=== PATIENT | male | born 1980 | race Caucasian/White ===

== ENCOUNTER 2025-05-04 13:53 | Outpatient (POV) | payer BC, SELFPAY ==
--- OUTSIDE RECORDS SUMMARY | 2025-04-12 10:30 | XMS_ITS | Encounter Summary ---
Author [place] [address] Care Team Providers Care Underground Bolting Machine Operator Name Role Phone Christian Somers DO Primary Care Provider [phone] Reason for Visit * Reason Comments Referral Pain management Skin Condition Encounter Details Date Type Department Care Team (Late st Contact Info) Description 04/12/2025 10:30 AM EDT Office Visit [facility] [address] [place] [address] Sawyer Pacheco MD [address] [place] [address] Chronic midline low back pain without sciatica (Primary Dx); Cyst of skin Social History Tobacco Use Types Packs/Day Years Used Date Smoking Tobacco: Every Day Cigarettes 3 6 Started: 10/26/1999; Last attempted to quit: 10/26/2005 Smokeless Tobacco: Never Tobacco Cessation:Ready to Q uit: Not Asked; Counseling Given: Not Answered Alcohol Use Standard Drinks/Week Comments Not Currently 0 (1 standard drink = 0.6 oz pur e alcohol) PHQ-2 Answer Date Recorded PHQ-2 Total Score 0 06/29/2024 Sex and Gender Information Value Date Recorded Sex Assigned at Not on file Legal Sex Male 4:05 AM EDT Gender Identity Not on file Sexual Orientation Not on file documented as of this encounter Last Filed Vital Signs Vital Sign Reading Time Taken Comments Blood Pressure 106/68 04/12/2025 10:56 AM EDT Pulse - - Temperature 36.8 C (98.2 F) 04/12/2025 10:56 AM EDT Respiratory Rate - - Oxygen Saturation - - Inhaled Oxygen Concentration - - Weight 81.6 kg (180 lb) 04/12/2025 10:56 AM EDT Height 193 cm (6' 4 ) 04/12/2025 10:56 AM EDT Body Mass Index 21.91 04/12/2025 10:56 AM EDT documented in this encounter Functional Status * Is the person deaf or does he/she have serious difficulty hearing? Answer Date of Assessment Author No 12/14/2020 10:25 AM Ingrid Benavides RMA * Is the person blind or does he/she have serious difficulty seeing even when wearing glasses? Answer Date of Assessment Author No 12/14/2020 10:25 AM Ingrid Benavides RMA * Does this person have serious difficulty walking or climbing stairs? Answer Date of Assessment Author No 12/14/2020 10:25 AM Ingrid Benavides RMA * Does this person have difficulty dressing or bathing? Answer Date of Assessment Author No 12/14/2020 10:25 AM Ingrid Benavides RMA * Because of a physical, mental or emotional condition, does this person have difficulty doing errands alone such as visiting a doctor's office or shopping? Answer Date of Assessment Author No 12/14/2020 10:25 AM Ingrid Benavides RMA documented as of this encounter Mental Status * Because of a physical, mental or emotional condition, does this person have serious difficulty concentrating, remembering or making decisions? Answer Entry Date Author No 12/14/2020 10:25 AM Ingrid Benavides RMA documented in this encounter Ordered Prescriptions Prescription Sig Dispense Quantity Refills Last Filled Start Date End Date ibuprofen (ADVIL;MOTRIN) 800 mg Oral TabletIndications :Chronic midline low back pain without sciatica Take 1 Tablet by mouth every 8 hours as needed for Pain. 90 Tablet 2 04/12/2025 methylPREDNISolon e (MEDROL DOSPACK) 4 mg Oral Tablets, Dose PackIndications:C hronic midline low back pain without sciatica See package instructions 21 Tablet 04/12/2025 documented in this encounter Progress Notes * Sawyer Pacheco MD - 04/12/2025 10:30 AM EDT Vitals: 04/12/25 1056 BP: 106/68 Temp: 98.2 ??F (36.8 ??C) Weight: 180 lb (81.6 kg) Height: 6' 4 (1.93 m) Body mass index is 21.91 kg/m??. SUBJECTIVE: Chief Complaint Patient presents with Referral Pain management Skin Condition HPI: Pt here to get referral ordered for pain management. He is also requesting medication to help with the pain. He has been getting some relief taking 800 mg of OTC ibuprofen and wants to discuss prescription and maybe some steroids. Pt has also had a dark spot on his back for a couple months or so. Review of Systems Constitutional: Negative for fever. Eyes: Negative for visual disturbance. Respiratory: Negative for cough. Cardiovascular: Negative for chest pain. Gastrointestinal: Negative for abdominal pain, constipation and diarrhea. Genitourinary: Negative for difficulty urinating. Musculoskeletal: Negative for joint swelling. Skin: Negative for rash. Neurological: Negative for dizziness, light-headedness and headaches. OBJECTIVE: Physical Exam Vitals reviewed. Constitutional: General: He is not in acute distress. Appearance: Normal appearance. He is well-developed. He is not ill-appearing. HENT: Head: Normocephalic and atraumatic. Right Ear: Tympanic membrane is not erythematous or bulging. Left Ear: Tympanic membrane is not erythematous or bulging. Eyes: General: Right eye: No discharge. Left eye: No discharge. Conjunctiva/sclera: Conjunctivae normal. Cardiovascular: Rate and Rhythm: Normal rate and regular rhythm. Heart sounds: Normal heart sounds. Pulmonary: Effort: Pulmonary effort is normal. Breath sounds: Normal breath sounds. Abdominal: Palpations: Abdomen is soft. Musculoskeletal: General: Normal range of motion. Skin: General: Skin is warm. Findings: No rash. Neurological: Mental Status: He is alert. Psychiatric: Mood and Affect: Mood normal. Thought Content: Thought content normal. Assessment & Plan Chronic midline low back pain without sciatica Orders: methylPREDNISolone (MEDROL DOSPACK) 4 mg Oral Tablets, Dose Pack; See package instructions methylPREDNISolone acetate (DEPO-Medrol) injection 80 mg ibuprofen (ADVIL;MOTRIN) 800 mg Oral Tablet; Take 1 Tablet by mouth every 8 hours as needed for Pain. Cyst of skin Benign, can follow up with derm for excision if desired. documented in this encounter Plan of Treatment Not on file documented as of this encounter Goals Goal Patient Goal Type Associated Problems Recent Progress Patient-Stated? Author Eat better, exercise, reach an ideal body weight General No Ingrid Srinivasan RMA Stay Tobacco Free Lifestyle No Ingrid Srinivasan RMA documented as of this encounter Visit Diagnoses Diagnosis Chronic midline low back pain without sciatica- Primary Cyst of skin Sebaceous cyst documented in this encounter Administered Medications Inactive Administered Medications - up to 1 most recent administrations Medication Order MAR Action Action Date Dose Rate Site methylPREDNISolone acetate (DEPO-Medrol) injection 80 mg 80 mg, Intramuscular, ONCE, 1 dose, On Thu04/12/25 at 1130, Dx: 1. Chronic midline low back pain without sciaticaIndications:Chr onic midline low back pain without sciatica Given 04/12/2025 11:21 AM EDT 80 mg Left Upper Outer Quadrant documented in this encounter Discontinued Medications Medication Sig Discontinue Reason Start Date End Da te diclofenac (VOLTAREN) 75 mg Oral Tablet, Delayed Release (E.C.)Indications:[place] pain of right knee Take 1 Tablet by mouth 2 times daily (with meals). DELETE-Therapy completed 07/12/2024 04/12/2025 methylPREDNISolone (MEDROL DOSPACK) 4 mg Oral Tablets, Dose PackIndications:[place] pain of right knee See package instructions DELETE-Therapy completed 07/12/2024 04/12/2025 methylPREDNISolone (MEDROL DOSPACK) 4 mg Oral Tablets, Dose PackIndications:[place] pain of right knee See package instructions DELETE-Therapy completed 07/12/2024 04/12/2025 documented as of this encounter Care Teams Underground Bolting Machine Operator Relationship Specialty Start Date End Date Christian Somers DO [address] [place] [address] PCP - General 03/22/10 documented as of this encounter
--- OUTSIDE RECORDS SUMMARY | 2025-05-04 14:13 | XMS_ITS | Encounter Summary ---
Author Organization [facility] [address] Care Team Providers Care Machine Setter Supervisor Name Role Phone LizbetChristian Primary Care Provider Reason for Visit * Reason Onset Date Comments Follow Up 04/17/2025 f/u on pain ad gement referral Encounter Details Date Type Department Care Team (Late st Contact Info) Description 04/17/2025 Telephone [facility] [address] [place] [address] Christian Somers DO [address] [place], [place] [id number] Follow Up (f/u on pain management referral ) Social History Tobacco Use Types Packs/Day Years Used Date Smoking Tobacco: Every Day Cigarettes 3 6 Started: 10/26/1999; Last attempted to quit: 10/26/2005 Smokeless Tobacco: Never Alcohol Use Standard Drinks/Week Comments Not Currently 0 (1 standard drink = 0.6 oz pur e alcohol) PHQ-2 Answer Date Recorded PHQ-2 Total Score 0 06/29/2024 Sex and Gender Information Value Date Recorded Sex Assigned at Not on file Legal Sex Male 4:05 AM EDT Gender Identity Not on file Sexual Orientation Not on file documented as of this encounter Functional Status * Is the [...] Ingrid Benavides RMA documented in this encounter Miscellaneous Notes * Telephone Encounter - Patricia Neville - 04/17/2025 4:21 PM EDT Re-faxed this form. If pt needs it updated/re-faxed again, it is in my money drawer * Telephone Encounter - Vesna Elizondo - 04/17/2025 3:45 PM EDT Select the most appropriate reason for this telephone message: Follow Up Follow Up Who is Calling:Patient What is the caller following up on (make sure to reference any prior documentation/encounter):pt wanted to follow up with the referral for pain management. pt stated he has not heard anything and would like someone to f/u with him Further follow-up needed?:Yes Return Method of Communication:Phone call Additional Information:N/A documented in this encounter Plan of Treatment Not on file documented as of this encounter Goals Goal Patient Goal Type Associated Problems Recent Progress Patient-Stated? Author Eat better, exercise, reach an ideal body weight General No Ingrid Srinivasan RMA Stay Tobacco Free Lifestyle No Ingrid Srinivasan RMA documented as of this encounter Visit Diagnoses Not on filedocumented in this encounter Care Teams Machine Setter Supervisor Relationship Specialty Start Date End Date Christian Somers DO [address] [place] [address] PCP - General 03/22/10 documented as of this encounter
--- OUTSIDE RECORDS SUMMARY | 2025-05-04 14:13 | XMS_ITS | Encounter Summary ---
Author Organization [place] [address] Care Team Providers Care Mosaic Floor Layer Name Role Phone Christian Somers DO Primary Care Provider [phone] Reason for Referral * Consultation (Routine) - Pending Review Specialty Diagnoses / Procedures Referred By Samir ramsey Referred To Contact Diagnoses Chronic midline low back pain without sciatica Procedures OR OFFICE/OUTPATIENT NEW MODERATE MDM 45 MINUTES Christian Somers DO [address] [place] [address] Phone: tel: fax: [address] [address] Phone: tel: fax: Referral ID Status Reason Start Date Expiration Date Visits Requested Visits Authorized [id number] Pending Review Specialty Services Required 04/10/2025 04/10/2026 99 99 Reason for Visit * Reason Onset Date Comments Referral 04/10/2025 pain management referral Encounter Details Date Type Department Care Team (Late st Contact Info) Description 04/10/2025 Telephone [facility] [address] [place] [address] Christian Somers DO [address] [place], [place] [id number] Referral (pain management referral) Social History Tobacco Use Types Packs/Day Years [...] encounter Miscellaneous Notes * Telephone Encounter - Karie Brown - 04/11/2025 3:11 PM EDT [place] patient needs appt for documentation due to pain management requesting records. We have nothing recent on file * Telephone Encounter - Keren Harden - 04/11/2025 1:27 PM EDT Select the most appropriate reason for this telephone message: Other Who is calling (name & relationship to patient if not the patient): Patient What is needed OR why are they calling: Per pt stating would need this faxed over to [phone] When is this needed by: today Where does this information need to go: n/a Return Method of Communication: Phone Call Additional information:N/A * Telephone Encounter - Brie Mchugh RMA - 04/10/2025 1:18 PM EDT Referral ordered. * Telephone Encounter - Ni Lane - 04/10/2025 12:16 PM EDT Select the most appropriate reason for this telephone message: Referral Request Who is requesting the referral: Patient What type of referral: Pain management What is the reason / diagnosis for this referral:Neck and back pain,migraines Have you been seen by your PCP for this issue: Yes Does patient have a preference on a group/provider: Yes (if yes, complete preferred provider info below) Preferred Provider/Group Name: [facility] pain management Preferred Provider/Group Preferred Provider/Group Fax Number: Return Method of Communication: Phone Call Additional Information: N/A documented in this encounter Plan of Treatment Scheduled Referrals Name Type Priority Associated Diagnoses Orde r Schedule AMB REFERRAL TO PAIN CLINIC Outpatient Referral Routine Chronic midline low back pain without sciatica Ordered: 04/10/2025 documented as of this encounter Goals Goal Patient Goal Type Associated Problems Recent Progress Patient-Stated? Author Eat better, exercise, reach an ideal body weight General No Ingrid Srinivasan RMA Stay Tobacco Free Lifestyle No Ingrid Srinivasan RMA documented as of this encounter Visit Diagnoses Diagnosis Chronic midline low back pain without sciatica- Primary documented in this encounter Care Teams Mosaic Floor Layer Relationship Specialty Start Date End Date Christian Somers DO [address] [place] [address] PCP - General 03/22/10 documented as of this encounter
--- OUTSIDE RECORDS SUMMARY | 2025-05-04 14:13 | XMS_ITS | Patient Health Record ---
Author Organization [facility] Address [address] [place] [address] [address] [place] [address] Care Team Providers Care Health Therapist Name Role Phone Lizbet ADAMES-PCPChristian Unavailabl e Allergies No Known Allergies Reason For Referral No Information Medications Medication SIG (Take, Route, Frequency, Duration) Notes Start Date End Date Status cyclobenzaprine 10 mg 1 tab(s) orally 3 times a day PRN 01/07/2021 Active ibuprofen 800 mg ; Duration: 30 Active hydrOXYzine hydrochloride 50 mg 1 tab(s) orally 4 times a day 06/13/2021 Active ARIPiprazole 2 mg ; Duration: 30 Active Acetaminophen-Hydrocodon e Bitartrate 325 mg-5 mg 1 tab(s) orally every 8 hours; Duration: 30 days SEPTEMBER 2021 RX, DO NOT FILL ANY SOONER THAN EVERY 30 DAYS, (OK TO FILL EARLY IF CLOSED) Active FLUoxetine 20 mg 1 cap(s) orally once a day; Duration: 30 day(s) 06/13/2021 Active Acetaminophen-Hydrocodon e Bitartrate 325 mg-5 mg 1 tab(s) orally every 8 hours; Duration: 30 days OCTOBER 2021 RX, DO NOT FILL ANY SOONER THAN EVERY 30 DAYS, (OK TO FILL EARLY IF CLOSED) Active gabapentin 300 mg 1 cap(s) orally QHS; Duration: 30 day(s) DO NOT FILL ANY SOONER THAN EVERY 30 DAYS, (OK TO FILL EARLY IF CLOSED) Active Social History Tobacco Use: Social History Observation Description Date Details (start date - stop date) Former Smoker NA - NA Alcohol Screen Question Answer Notes Did you have a drink containing alcohol in the p ast year? No Points 0 Interpretation Negative Smoking-PQRS Question Answer Notes Are you a: former smoker Problems Problem Type SNOMED Code ICD Code Onset Dates Problem Status W/U Status Risk Notes Problem Cervical spondylosis without myelopathy (459837964) Spondylosis without myelopathy or radiculopathy, cervical region (M47.812) Active confirmed Problem Lumbosacral spondylosis without myelopathy (86770201) Spondylosis without myelopathy or radiculopathy, lumbar region (M47.816) Active confirmed Problem Degeneration of cervical intervertebral disc (23560435) Other cervical disc degeneration, unspecified cervical region (M50.30) Active confirmed Problem Degeneration of lumbar intervertebral disc (34413816) Other intervertebral disc degeneration, lumbar region (M51.36) Active confirmed Problem Lumbar radiculopathy (844201111) Radiculopathy, lumbar region (M54.16) Active confirmed Problem Cervicalgia (62643164) Cervicalgia (M54.2) Active confirmed Problem Low back pain (384213763) Low back pain (M54.5) Active confirmed Problem Long-term current use of drug therapy (423272885) Other half-way (current) drug therapy (Z79.899) Active confirmed Problem Cervical spondylosis (068363464) cervical spondylosis (M47.812) Active confirmed Plan Of Treatment Pending Test Test Name Order Date Urine Test LCMS Definitive 01/16/2021 Urine Test LCMS Definitive 02/13/2021 Insurance Providers Payer Name Payer Address Payer Phone Subscriber Number Group Number Insured Name Patient Relationship to Insured Coverage Start Date Coverage End Date [employer] [address] [place] [address] [id number] [place] [address] Spouse - patient is the spouse of the insured 7 Medical (General) History Medical History History ICD Code headaches/ migraine sleep apnea Spine disorder Arthritis Surgical History Surgery Date(Month/Year)
--- OUTSIDE RECORDS SUMMARY | 2025-05-04 14:13 | XMS_ITS | Clinical Summary ---
Author Organization [facility] Address [address] [place] [address] Phone Care Team Providers Care Rehabilitation Physician Name Role Phone Christian Somers DO Primary Care Provider [phone] Allergies Active Allergy Reactions Criticality Noted Date Comments Baclofen Other (See Comments) 02/01/2017 Dizziness, passed out Medications * This document contains information received from the source organization and may not represent a complete record from that organization. methylPREDNISol one (MEDROL DOSPACK) 4 mg Oral Tablets, Dose PackIndications :Chronic midline low back pain without sciatica See package instructions 21 Tablet 5 Active ibuprofen (ADVIL;MOTRIN) 800 mg Oral TabletIndicatio ns:Chronic midline low back pain without sciatica Take 1 Tablet by mouth every 8 hours as needed for Pain. 90 Tablet 2 5 Active Hospital, Clinic, or Other Facility Administered Medication Ordered Dose Route Frequency Start Date End Date Status methylPREDNISolone acetate (DEPO-Medrol) injection 80 mgIndications:Chronic midline low back pain without sciatica 80 mg IM ONCE 04/12/2025 04/12/2025 Ended Active Problems Problem Noted Date Diagnosed Date Foreign body of left cornea 03/10/2023 Assessment & Plan (03/10/2023 4:43 PM EDT): An eye exam was needed to determine if FB present and the necessary procedure. Informed consent was obtained and the left eye was anesthetized with topical proparacaine 0.5%. A hand held electric maritza/Dickenson brush was used to remove FB and sami the anterior cornea. The procedure went as planned and the patient tolerated procedure well. Advised to continue with ointment at night and antibiotic drop QID OS for 4 days. RTC if worsening or not improving. DDD (degenerative disc disease), lumbosacral 03/2018 DDD (degenerative disc disease), cervical 2017 Encounters Date Type Department Care Team Description 04/17/2025 Telephone [facility] [address] [place] [address] Christian Somers DO Follow Up (f/u on pain management referral ) 04/12/2025 10:30 AM EDT Office Visit [facility] [address] [facility] [place] [address] Sawyer Pacheco MD Chronic midline low back pain without sciatica (Primary Dx); Cyst of skin 04/10/2025 Telephone [facility] [address] [facility] [place] [address] Christian Somers DO Referral (pain management referral) 02/12/2025 3:32 PM EDT - 02/12/2025 5:25 PM EDT [facility] [address] [facility] [place] [address] Zander Chaparro MD Abrasion of right cornea, initial encounter (Primary Dx); Foreign body, eye, right, initial encounter Discharge Disposition: Home or Self Care 02/12/2025 Travel from Last 3 Months Immunizations Immunization Administration Dates Next Due PPD Test 12/23/2010 Tdap 07/14/2023,08/11/2015 Surgical History Surgery Date Site/Laterality Comments FINGER SURGERY rt index FINGER AMPUTATION 09/11/2015 Right RIGHT INDEX DISTAL PHALANX REVISION AMPUTATION ; Surgeon: Kimani Little MD; Location: [facility]; Service: Hand FINGER AMPUTATION 02/02/2018 Finger/Right RIGHT INDEX FINGER BIOPSY, REVISION AMPUTATION; Surgeon: Kimani Little MD; Location: [facility]; Service: Hand Medical devices from this surgery are in the Medical Devices section. Medical History Medical History Date Comments Back pain Work related injury 08/11/2015 injured righ t index finger at work Arthritis Chest pain has had chest pa in in past, but has a stress test every 5 years due to family history. States it has always been normal Family History Medical History Relation Name Comments Other Father enlarged heart Anesth Problems Neg Hx Relation Name Status Comments Brother Alive Father Mother Alive Sister Alive Social History Tobacco Use Types Packs/Day Years [...] on file Sexual Orientation Not on file Obstetrics History Last Filed Vital Signs Vital Sign Reading Time Taken Comments Blood Pressure 106/68 04/12/2025 10:56 AM EDT Pulse 99 02/12/2025 3:15 PM EDT Temperature 36.8 C (98.2 F) 04/12/2025 10:56 AM EDT Respiratory Rate 20 02/12/2025 3:15 PM EDT Oxygen Saturation 100% 02/12/2025 3:15 PM EDT Inhaled Oxygen Concentration - - Weight 81.6 kg (180 lb) 04/12/2025 10:56 AM EDT Height 193 cm (6' 4 ) 04/12/2025 10:56 AM EDT Body Mass Index 21.91 04/12/2025 10:56 AM EDT Plan of Treatment Health Maintenance Due Date Last Done Comments Hepatitis B Vaccine (1 of 3 - 19+ 3-dose series) 1997 Pneumococcal Vaccine 0-49 (1 of 2 - PCV) 1997 Cologuard 2023 Colon Cancer Screening 2023 Colonoscopy 2023 FIT 2023 Sigmoidoscopy 2023 Virtual Colonography 2023 COVID-19 Vaccine ( - 2023-2 5 season) 2024 Influenza Vaccine (#1) 2025 7 (Declined), 11/09/2015 (Declined) Annual Wellness Exam 06/29/2025 06/29/2024 DTaP/TDaP/Td (3 - Td or Tdap) 07/14/2033, 08/11/2015 Meningococcal B Vaccine Aged Out No l onger eligible based on patient's age to complete this topic Goals Goal Patient Goal Type Associated Problems Recent Progress Patient-Stated? Author Eat better, exercise, reach an ideal body weight General No Ingrid Srinivasan RMA Stay Tobacco Free Lifestyle No Ingrid Srinivasan RMA Medical Devices Implanted Type Area Procurement Buyer Device Identifier Shelf Expiration Date Model / Serial / Lot Paste Orthoblast 1cc - [id number] Implanted:Qty: 1 on 02/02/2018 by Kimani Little MD at [facility] Right: Finger [employer] [email or web address] 10/22/2019 0 / / [id number] Insurance Member Subscriber Plan / Payer (Ef fective 2017-Present) Name:Mansoor Richards Relation to Subscriber:Spouse Name:Deanna Richards Date of :1982 (Home) Address: [address] [place] [address] Payer ID:[id number] (NAIC) Type:Not on file Address: [address] [place] [phone] ANTHEM PPO ANTHEM PPO Member Subscriber Plan / Payer (Ef fective 2017-Present) Name:Mansoor Richards Relation to Subscriber:Spouse Name:Deanna Richards Date of :1982 (Home) Address: [address] [place], [place] [address] Payer ID:[id number] (NAIC) Type:Not on file Address: [address] [place] [phone] * Guarantor: Mansoor Richards Account Type Relation to Patient Date of Phone Billing Address [place] Personal Family Self Care Teams Rehabilitation Physician Relationship Specialty Start Date End Date Christian Somers DO [address] [place] [address] PCP - General 03/22/10
[2025-05-04 14:34] VITALS: BP 139/85; PULSE 82; RESP 18; O2SAT 98; BMI 22.4
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
== END 2025-05-04 23:59 | disposition home or self-care (01) ==
LOC: SC.PAIN 14:03
PROVIDERS: Visit Provider Nurse Practitioner Family
DX: M47.816 Spondylosis without myelopathy or radiculopathy, lumbar region (principal); M54.12 Radiculopathy, cervical region; G89.29 Other chronic pain
CPT/HCPCS: 99202; G0463

== ENCOUNTER 2025-06-06 11:45 | Day surgery (SDC) | payer BC, SELFPAY ==
[2025-06-06 12:00] VITALS: BP 142/99; PULSE 83; RESP 18; O2SAT 97; BMI 22.4
[2025-06-06 12:18] VITALS: BP 147/87; PULSE 77; RESP 18; O2SAT 97
--- NOTE | 2025-06-06 12:22 | EXP.PAIN.PRO ---
Procedure Date: 06/06/25 Time: 12:00 Anesthesiologist:: Gael Dennis CRNA Complications:: None Pre-procedure Diagnosis:: Degenerative disc lumbar spine multilevels. Lumbar radiculopathy. Lumbar spondylosis. Multilevel lumbar facet arthropathy Post-procedure Diagnosis:: Same. Indications for Procedure:: Patient is a very pleasant 45-year-old male who comes our clinic today for round 1 of lumbar medial branch blocks/facet injections L1-2, L2-3 level. Patient describes low lumbar back pain as constant, dull, aching. He reports having difficulty with lumbar flexion, extension, left and right rotation. He rates his pain 7/10. Procedure Details:: Informed consent was obtained and the risk and benefits of the procedure was explained to the patient. Patient was taken to the procedure room where noninvasive monitors were placed, including noninvasive blood pressure cuff as well as pulse oximeter. The area over the lumbar spine was cleansed using chlorhexidine as a cleansing solution. I anesthetized the skin and subcutaneous tissues with 1% Lidocaine. I placed 22-gauge spinal needles into the facet joint/ medial branches of L1-2, L2-3 bilaterally. Needle placement was confirmed with fluoroscopy. After confirmation of needle placement, each site was injected with 1 mL of 1% lidocaine and 0.25 % Marcaine 1 mL. Patient tolerated the procedure without difficulty. There were no complications. Plan and Disposition:: Patient was discharged without incident.
[2025-06-06] MEDS: LIDOCAINE 1% 5ML PF VIAL 5 ML (13:23)
[2025-06-06] MEDS: BUPIVACAINE 0.25% 10ML INJ 25 MG IJ (13:23)
[2025-06-06 13:24] VITALS: BP 142/99; PULSE 83; RESP 18; O2SAT 97
[2025-06-06 13:35] VITALS: BP 142/99; PULSE 83; RESP 18; O2SAT 97
== END 2025-06-06 12:18 | disposition home or self-care (01) ==
PROVIDERS: PCP Family Medicine; Visit Provider Nurse Anesthetist, Certified Registered
DX: M51.16 Intervertebral disc disorders with radiculopathy, lumbar region (principal); M47.26 Other spondylosis with radiculopathy, lumbar region; F17.200 Nicotine dependence, unspecified, uncomplicated; Z79.899 Other long term (current) drug therapy; Z88.8 Allergy status to other drugs, medicaments and biological substances
CPT/HCPCS: 64493; 64494; J0665; J2003